=== PATIENT | male | born 1995 | race Caucasian/White ===

== ENCOUNTER 2019-07-18 07:38 | Emergency (ER) | payer OTHER ==
[~2019-07-18] VITALS: Ht 167.6 cm; Wt 74.4 kg
[~2019-07-18 07:38] MED LIST: MOTION SICKNESS25 M2 PO
== END 2019-07-18 10:47 | disposition home or self-care (01) ==
LOC: ER 07:38
DX: K42.9 Umbilical hernia without obstruction or gangrene (principal)

== ENCOUNTER 2021-06-27 18:03 | Emergency (ER) | payer OTHER ==
[~2021-06-27] VITALS: Ht 167.6 cm; Wt 72.6 kg
== END 2021-06-27 20:21 | disposition home or self-care (01) ==
LOC: ER 18:03
DX: M94.0 Chondrocostal junction syndrome [Tietze] (principal); R07.89 Other chest pain